=== PATIENT | female | born 1975 | race African-American/Black ===

== ENCOUNTER 2018-10-11 12:31 | Inpatient (IN) ==
[2018-10-11] MEDS ORDERED: ONDANSETRON 4 MG/2 ML VIAL IV PRN (14:10)
[2018-10-11] MEDS ORDERED: ACETAMINOPHEN 325 MG TABLET PO PRN (14:10)
[2018-10-11 16:04] LABS: Basophils % 0.4 % (0.0-0.8); Eosinophils # 0.1 10*3/uL (0.0-0.87); Eosinophils % 0.5 % (0.00-10.9); Hematocrit 36.4 VOL% (35.7-47.0); Hemoglobin 11.7 GM/DL (12.0-16.0); Immature Granulocytes % 0.4 %; Immature Granulocytes Absolute 0.04 #; Lymphocytes # 2.6 10*3/uL (1.4-4.0); Lymphocytes % 25.5 % (21.3-54.2); Mean Corpuscular HGB Conc 32.1 GM/DL (32-36); Mean Corpuscular Volume 96.6 FL (87-102); Mean Platelet Volume 8.7 FL (9.6-12.0); Monocytes % 6.3 % (1.7-12.7); Neutrophils % 66.9 % (38.7-73.9); Platelet Count 325 T/CUMM (130-400); Red Blood Count 3.77 MC/CUMM (3.8-5.5); Red Cell Distribution Width 12.9 % (9.3-17.3)
[2018-10-11] MEDS: PIPERACILLIN/TAZOBACTAM 3,375 MG in SODIUM CHLORIDE 0.9% 100 ML IV SCH (17:24)
[2018-10-11] MEDS: LACTATED RINGERS 1,000 ML IV SCH (17:24)
[2018-10-12 05:21] LABS: Basophils % 0.4 % (0.0-0.8); Eosinophils # 0.3 10*3/uL (0.0-0.87); Eosinophils % 2.5 % (0.00-10.9); Hematocrit 34.2 VOL% (35.7-47.0); Hemoglobin 11.4 GM/DL (12.0-16.0); Immature Granulocytes % 0.3 %; Immature Granulocytes Absolute 0.03 #; Lymphocytes # 2.4 10*3/uL (1.4-4.0); Mean Corpuscular HGB Conc 33.3 GM/DL (32-36); Mean Corpuscular Volume 95.5 FL (87-102); Mean Platelet Volume 9.3 FL (9.6-12.0); Monocytes % 8.4 % (1.7-12.7); Neutrophils % 65.4 % (38.7-73.9); Platelet Count 303 T/CUMM (130-400); Red Blood Count 3.58 MC/CUMM (3.8-5.5); White Blood Count 10.5 T/CUMM (4-12)
[2018-10-12 05:40] LABS: Albumin 2.8 G/DL (3.4-5.0); Bilirubin,Total 0.8 MG/DL (0.2-1.0); Calcium 7.9 MG/DL (8.5-10.1); Osmolality,Calculated 280.1 MOS/KG (273-304); Total Protein 6.1 G/DL (6.4-8.3)
[2018-10-12] MEDS: LACTATED RINGERS 1,000 ML IV SCH ×3 (07:18→21:13)
[2018-10-12] MEDS: PIPERACILLIN/TAZOBACTAM 3,375 MG in SODIUM CHLORIDE 0.9% 100 ML IV SCH ×3 (09:05→17:14)
[2018-10-12] MEDS: PANTOPRAZOLE 40 MG TABLET PO SCH (09:05)
[2018-10-12] MEDS: POTASSIUM CHLORIDE 20 MEQ TABLET PO PRN ×3 (11:27→22:39)
[2018-10-12] MEDS: HYDROmorphone 2 MG/1 ML VIAL IV PRN ×2 (12:45→18:08)
[2018-10-12 13:08] LABS: Apearance,Urine Slightly Hazy (Clear); Bacteria,Urine Occasional /HPF (Few); Bilirubin,Urine Negative (Negative); Blood, Urine Moderate mg/dL (Negative); Glucose,Urine (UA) Negative (Negative); Ketones,Urine Negative (Negative); Mucus,Urine Occasional /LPF (Occasional); Nitrite,Urine Negative (Negative); Protein,Urine Negative; RBC,Urine 2 /HPF (0-4); Squamous Epithelial Cell,Urine Few /HPF (0-10); Urine Color Yellow (Yellow); Urine Specific Gravity 1.025 (1.001-1.035); Urine Urobilinogen < 2.0 EU/DL (0.2-1.0); WBC,Urine 4 /HPF (0-6)
[2018-10-13] MEDS: PIPERACILLIN/TAZOBACTAM 3,375 MG in SODIUM CHLORIDE 0.9% 100 ML IV SCH ×3 (00:45→17:55)
[2018-10-13] MEDS: POTASSIUM CHLORIDE 20 MEQ TABLET PO PRN ×2 (00:51→20:34)
[2018-10-13] MEDS: HYDROmorphone 2 MG/1 ML VIAL IV PRN ×2 (02:03→21:50)
[2018-10-13] MEDS: LACTATED RINGERS 1,000 ML IV SCH ×4 (05:17→21:33)
[2018-10-13 05:50] LABS: Calcium 8.2 MG/DL (8.5-10.1); Osmolality,Calculated 274.5 MOS/KG (273-304)
[2018-10-13] MEDS ORDERED: BUPIVACAINE 0.5% 50 ML VIAL ONE (07:25)
[2018-10-13] MEDS ORDERED: LIDOCAINE 1%/EPI INJ 20 ML VIAL ONE (07:25)
[2018-10-13] MEDS ORDERED: TISSUE ADHESIVE 1 EACH APPLICATOR TOP ONE (08:30)
[2018-10-13] MEDS ORDERED: ACETAMINOPHEN 1,000 MG/100 ML VIAL IV ONE (08:57)
[2018-10-13] MEDS ORDERED: PROPOFOL 200 MG/20 ML VIAL IV ONE (09:09)
[2018-10-13] MEDS ORDERED: ONDANSETRON 4 MG/2 ML VIAL ONE (09:09)
[2018-10-13] MEDS ORDERED: fentaNYL 100 MCG/2 ML VIAL ONE (09:09)
[2018-10-13] MEDS ORDERED: MIDAZOLAM 2 MG/2 ML VIAL ONE (09:09)
[2018-10-13] MEDS ORDERED: KETOROLAC 30 MG/1 ML VIAL ONE (09:09)
[2018-10-13] MEDS ORDERED: SEVOFLURANE 1 UNIT/15 MINUTE INH ONE (09:09)
[2018-10-13] MEDS ORDERED: LACTATED RINGERS 1,000 ML IV ONE (09:10)
[2018-10-13] MEDS ORDERED: ROCURONIUM 100 MG/10 ML VIAL IV ONE (09:10)
[2018-10-13] MEDS: PANTOPRAZOLE 40 MG TABLET PO SCH (11:32)
[2018-10-14] MEDS: PIPERACILLIN/TAZOBACTAM 3,375 MG in SODIUM CHLORIDE 0.9% 100 ML IV SCH ×2 (01:06→08:37)
[2018-10-14] MEDS: LACTATED RINGERS 1,000 ML IV SCH (05:53)
[2018-10-14] MEDS: PANTOPRAZOLE 40 MG TABLET PO SCH (08:37)
[2018-10-14 11:15] VITALS: BP 124/80
== END 2018-10-14 11:56 | disposition home or self-care (01) | DRG 419 ==
LOC: EDBD → EDUNIT# → N.ED 12:31 → N.EDINP 14:10 → N.3E 14:59
PROVIDERS: ADMIT Surgery; ATTEND Surgery
PROC: LAPCHOL (2018-10-13 07:45)